=== PATIENT | male | born 1960 | race Caucasian/White ===

== ENCOUNTER 2017-10-04 14:53 | Emergency (ER) | payer OTHER ==
[~2017-10-04] VITALS: Ht 177.8 cm; Wt 99.8 kg
[2017-10-04 17:09] VITALS: BP 143/96
== END 2017-10-04 17:10 | disposition home or self-care (01) ==
LOC: FSED 14:53
DX: M79.89 Other specified soft tissue disorders (principal); I10 Essential (primary) hypertension; E11.9 Type 2 diabetes mellitus without complications; I48.91 Unspecified atrial fibrillation; E78.5 Hyperlipidemia, unspecified; I69.898 Other sequelae of other cerebrovascular disease
CPT/HCPCS: 93971; 99283